=== PATIENT | female | born 1965 | race Caucasian/White ===

== ENCOUNTER → 2018-08-06 07:07 | Outpatient (CLI) | payer OTHER | END | disposition home or self-care (01) | LOC: LAB 07:07 | DX: I88.0 Nonspecific mesenteric lymphadenitis (principal); I10 Essential (primary) hypertension; D50.8 Other iron deficiency anemias; D51.8 Other vitamin B12 deficiency anemias; R97.0 Elevated carcinoembryonic antigen [CEA]; R97.8 Other abnormal tumor markers; C50.811 Malignant neoplasm of overlapping sites of right female breast; C54.1 Malignant neoplasm of endometrium; C56.9 Malignant neoplasm of unspecified ovary; C25.7 Malignant neoplasm of other parts of pancreas; M35.8 Other specified systemic involvement of connective tissue; M15.8 Other polyosteoarthritis ==

== ENCOUNTER 2018-08-06 08:00 | Outpatient (CLI) | payer OTHER | END 2018-08-06 09:27 | disposition home or self-care (01) | LOC: TOM 08:00 | DX: I88.0 Nonspecific mesenteric lymphadenitis (principal); I10 Essential (primary) hypertension ==

== ENCOUNTER 2019-01-21 11:11 | Emergency (ER) | payer OTHER ==
[~2019-01-21] VITALS: Ht 162.6 cm; Wt 83.9 kg
[2019-01-21] MEDS ORDERED: ZESTORETIC 20-1 EACH (11:42)
== END 2019-01-21 12:27 | disposition home or self-care (01) ==
LOC: ER 11:11
DX: K58.8 Other irritable bowel syndrome (principal)

== ENCOUNTER 2019-01-22 11:12 | Outpatient (CLI) | payer OTHER ==
[~2019-01-22 11:12] MED LIST: ZESTORETIC 20-1 EACH
== END 2019-01-22 11:19 | disposition home or self-care (01) ==
LOC: LAB 11:12
DX: R10.10 Upper abdominal pain, unspecified (principal); R10.13 Epigastric pain

== ENCOUNTER 2019-01-30 09:01 | Outpatient (CLI) | payer OTHER | END 2019-01-30 09:06 | disposition home or self-care (01) | LOC: NUCLEAR 09:01 | DX: R10.13 Epigastric pain (principal); R10.10 Upper abdominal pain, unspecified | CPT/HCPCS: 78227; A9537 ==

== ENCOUNTER 2020-01-05 07:36 | Outpatient (CLI) | payer OTHER | END 2020-01-05 07:53 | disposition home or self-care (01) | LOC: MAMO-SONO 07:36 | PROVIDERS: ATTEND Internal Medicine Hematology & Oncology | DX: Z12.31 Encounter for screening mammogram for malignant neoplasm of breast (principal); I88.0 Nonspecific mesenteric lymphadenitis; I10 Essential (primary) hypertension; A49.2 Hemophilus influenzae infection, unspecified site ==

== ENCOUNTER → 2020-04-26 15:00 | Outpatient (CLI) | payer OTHER | END | disposition home or self-care (01) | LOC: PPH VACUNA 15:00 | DX: Z23 Encounter for immunization (principal) ==

== ENCOUNTER → 2020-05-17 14:08 | Outpatient (CLI) | payer OTHER | END | disposition home or self-care (01) | LOC: PPH VACUNA 14:08 | DX: Z23 Encounter for immunization (principal) ==

== ENCOUNTER 2022-01-10 05:46 | Day surgery (SDC) | payer OTHER ==
[~2022-01-10] VITALS: Ht 160 cm; Wt 74.4 kg
[~2022-01-10 05:46] MED LIST changes: +GLUMETZA1000 MG PO
== END 2022-01-10 15:00 | disposition home or self-care (01) ==
LOC: CIR.AMB 05:46
PROVIDERS: ATTEND Specialist
DX: C85.13 Unspecified B-cell lymphoma, intra-abdominal lymph nodes (principal); I10 Essential (primary) hypertension; E11.9 Type 2 diabetes mellitus without complications; Z79.84 Long term (current) use of oral hypoglycemic drugs; Z20.822 Contact with and (suspected) exposure to COVID-19

== ENCOUNTER 2023-11-23 10:57 | Emergency (ER) | payer OTHER ==
[~2023-11-23] VITALS: Ht 160 cm; Wt 77.6 kg
[2023-11-23] MEDS ORDERED: JARDIANCE10 MG PO (11:12)
[2023-11-23 12:31] LABS: HEMATOCRIT 39.6 % (36.0-45.00); HEMOGLOBIN 13.5 g/dL (12.0-15.00); PLATELET COUNT 278 K/uL (150-450); RED BLOOD COUNT 4.36 M/uL (4.00-6.00); RED CELL DISTRIBUTION WIDTH 13.6 % (11.5-14.5)
[2023-11-23 12:38] LABS: INR 0.95; PARTIAL THROMBOPLASTIN TIME 25.7 SECONDS (22.0-34.0); PROTHROMBIN TIME 10.4 SECONDS (9.0-11.5)
[2023-11-23 12:42] LABS: CALCIUM 10.1 mg/dL (8.5-10.1); CREATININE SERUM 0.74 mg/dL (0.55-1.02); GFR 80.33; POTASSIUM 3.29 mEq/L (3.5-5.1)
[2023-11-23 12:59] LABS: URINE APPEARANCE Clear; URINE BILIRRUBIN Negative (NEGATIVE); URINE BLOOD Negative; URINE COLOR Yellow; URINE KETONE Negative (NEGATIVE); URINE LEUKOCYTE Negative; URINE NITRATE Negative; URINE PROTEIN Negative (NEGATIVE); URINE UROBILINOGEN 0.2 E.U./dl
[2023-11-23 13:04] LABS: URINE BACTERIA 127.1 uL (0.0-1933); URINE EPITHELIAL CELLS 6.6 uL (0.0-38.8); URINE RBC 2.2 uL (0.0-20.8); URINE WBC 54.8 uL (0.0-23.2)
[2023-11-23 13:12] LABS: URINE GLUCOSE >=1000 MG/DL (NEGATIVE)
== END 2023-11-23 18:14 | disposition home or self-care (01) ==
LOC: ER 10:58
PROVIDERS: Emergency Medicine
DX: T82.318A Breakdown (mechanical) of other vascular grafts, initial encounter (principal); Y92.89 Other specified places as the place of occurrence of the external cause; E11.9 Type 2 diabetes mellitus without complications; Z79.84 Long term (current) use of oral hypoglycemic drugs; Z85.89 Personal history of malignant neoplasm of other organs and systems; I10 Essential (primary) hypertension; Z20.822 Contact with and (suspected) exposure to COVID-19

== ENCOUNTER 2024-10-21 10:00 | Day surgery (SDC) | payer OTHER ==
[2024-10-16 12:44] VITALS: BP 119/80
[~2024-10-21] VITALS: Ht 162.6 cm; Wt 77.6 kg
[~2024-10-21 10:00] MED LIST changes: +JARDIANCE10 MG PO; +SYNTHROID50 MCG PO
[2024-10-21] MEDS ORDERED: LIDOCAINE HCL 1%/EPINEPHRINE 20ML VIAL IJ ONE (14:45)
[2024-10-21] MEDS ORDERED: CEFAZOLIN SODIUM 1,000 MG VIAL IV ONE (14:45)
[2024-10-21] MEDS ORDERED: LIDOCAINE HCL 1% 20 ML VIAL IJ ONE (14:45)
[2024-10-21] MEDS ORDERED: CEFAZOLIN SODIUM 1,000 MG VIAL IV SCH (16:00)
[2024-10-21] MEDS ORDERED: FAMOTIDINE/PF 20 MG/10 ML SYRINGE IV SCH (16:00)
[2024-10-21] MEDS ORDERED: CEFAZOLIN SODIUM 1,000 MG VIAL ONE (16:13)
[2024-10-21] MEDS ORDERED: FAMOTIDINE/PF 20 MG/2 ML VIAL ONE (16:13)
== END 2024-10-21 17:00 | disposition home or self-care (01) ==
LOC: CIR.AMB 10:00
PROVIDERS: ATTEND Specialist
DX: T82.59 Other mechanical complication of other cardiac and vascular devices and implants (principal); C85.10 Unspecified B-cell lymphoma, unspecified site